=== PATIENT | male | born 1950 | race Caucasian/White ===

== ENCOUNTER 2017-08-25 20:48 | Inpatient (IN) | payer OTHER ==
[~2017-08-25] VITALS: Ht 190.5 cm; Wt 123.4 kg
--- NOTE | 2017-08-25 21:18 | ED GI/GU/ABDOMINAL COMPLAINT ---
History of Present Illness General Chief Complaint: Abdominal Pain/Flank Pain Stated Complaint: RECTAL BLEEDING, DX DIVERTICULITIS AT ANOTHER ER Source: patient Exam Limitations: no limitations Vital Signs & Intake/Output Vital Signs & Intake/Output Vital Signs Date Time Temp Pulse Resp B/P B/P Pulse O2 O2 Flow FiO2 Mean Ox Delivery Rate 08/25 2316 167/88 08/251 96.9 91 20 135/89 95 Room Air Allergies Uncoded Allergies: Allergy Other N Med Allergies N Reconcile Medications Doxazosin Mesylate 2 MG TABLET 1 TAB PO DAILY HTN (Reported) Hydrochlorothiazide 25 MG TABLET 1 TAB PO DAILY HTN (Reported) Triage Note: PT HERE WITH C/O RECTAL BLEEDING X 2 DAYS. PT REPORTS IT IS BRIGHT RED BLOOD. PT SEEN RECENTLY AT [facility] AND WAS DIAGNOSED WITH DIVERTICULOSIS. PT STATES HE IS FEELING DIZZY. Triage Nurses Notes Reviewed? yes Onset: Gradual Duration: day(s): Timing: recent history Quality/Severity: cramping Location: generalized abdomen Radiation: no radiation Prior Abdominal Problems: none Modifying Factors: Improves With: rest. Associated Symptoms: rectal bleeding HPI: 67 yo gentleman on aspirin, presents w/ rectal bleeding. He shares that he began bleeding intermittently earlier today, [facility] had a hct [facility] w/ stable vitals. "They said I should be admitted, but I wanted to go home.... When I got home, I had another blood bowel movement... it seemed mixed with stool." He notes no dizziness, chills, fever. At [facility], he had a ct scan, "they said it showed diverticulosis but no infection." He is otherwise well. Past History Travel History Traveled to [place] past 21 day No Medical History Any Pertinent Medical History? see below for history Cardiovascular: hypertension Respiratory: asthma Gastrointestinal: diverticulitis Surgical History Surgical History: none Psychosocial History What is your primary language Kiswahili Tobacco Use: Never used ETOH Use: occasional use Illicit Drug Use: denies illicit drug use Family History Hx Contributory? No Review of Systems Review of Systems Constitutional: Reports: no symptoms. EENTM: Reports: no symptoms. Respiratory: Reports: no symptoms. Cardiovascular: Reports: no symptoms. GI: Reports: no symptoms. Genitourinary: Reports: no symptoms. Musculoskeletal: Reports: no symptoms. Skin: Reports: no symptoms. Neurological/Psychological: Reports: no symptoms. Hematologic/Endocrine: Reports: no symptoms. Immunologic/Allergic: Reports: no symptoms. All Other Systems: Reviewed and Negative Physical Exam Physical Exam General Appearance: well developed/nourished, no apparent distress Head: atraumatic, normal appearance Eyes: Bilateral: normal appearance. Ears, Nose, Throat, Mouth: hearing grossly normal, moist mucous membrane Neck: normal inspection, supple, full range of motion, normal alignment Respiratory: normal breath sounds, chest non-tender, no respiratory distress, quiet respiration Cardiovascular: regular rate/rhythm Gastrointestinal: soft, non-tender Rectal: mucusy blood streaks, no clots. no stool Back: normal inspection, normal range of motion Extremities: normal range of motion Neurologic/Psych: no motor/sensory deficits, awake, alert, oriented x 3 Skin: intact, normal color, warm/dry Core Measures ACS in differential dx? No Sepsis Present: No Sepsis Focused Exam Completed? No Progress Differential Diagnosis: upper vs lower gi bleed Plan of Care: Orders Procedure Date/time Status Nothing by Mouth 08/26 B Active CBC WITHOUT DIFFERENTIAL 08/26 06 Active Pathway - chart 08/25 2300 Active Patient Data 08/25 230 Active Patient Data 08/25 2240 Active Saline Lock 08/25 222 Active Misc Message 08/25 222 Active ED Holding Orders 08/25 2220 Active Admit to inpatient 08/25 222 Active Vital Signs 08/25 2220 Active Code Status 08/25 222 Active Intake & Output 08/25 2137 Active TROPONIN LEVEL 08/25 210 Complete LIPASE 08/25 2100 Complete HEPATIC FUNCTION PANEL 08/25 2100 Complete CBC WITHOUT DIFFERENTIAL 08/25 2100 Complete BASIC METABOLIC PANEL 08/25 2100 Complete AMYLASE 08/25 2100 Complete EKG 08/25 2100 Active TYPE & SCREEN (NOT X-MATCH) 08/25 2100 Complete Current Medications Sig/Abdullahi Start time Last Medication Dose Stop Time Status Admin Sodium Chloride 1,000 ML BOLUS ONE 08/25 2229 UNVr 08/25 (Normal Saline 0.9%) 08/25 232 2238 Laboratory Tests 08/25/172125: Anion Gap 10, Estimated GFR > 60, BUN/Creatinine Ratio 15.0, Glucose 128 H, Calcium 9.1, Total Bilirubin 0.5, Direct Bilirubin 0.4, AST 22, ALT 32, Alkaline Phosphatase 95, Troponin I < 0.01, Total Protein 6.6, Albumin 3.6, Amylase 37, Lipase 44, CBC w Diff NO MAN DIFF REQ, RBC 4.15 L, MCV 93.7, MCH 31.1 H, MCHC 33.3, RDW 13.7, MPV 7.3 L, Gran % 58.6, Lymphocytes % 28.0, Monocytes % 10.8 H , Eosinophils % 2.4, Basophils % 0.2, Absolute Granulocytes 4.0, Absolute Lymphocytes 1.9, Absolute Monocytes 0.7 H, Absolute Eosinophils 0.2, Absolute Basophils 0 08/25/17 0200: CBC w Diff Cancelled, WBC Cancelled, RBC Cancelled, Hgb Cancelled, Hct Cancelled , MCV Cancelled, MCH Cancelled, MCHC Cancelled, RDW Cancelled, Plt Count Cancelled, MPV Cancelled Initial ED EKG: nsr, no acute changes Departure Departure Disposition: STILL A PATIENT Condition: Stable Clinical Impression Primary Impression: GI bleed Referrals: Unknown Departure Forms: Customer Survey General Discharge Information Comments 08/25/17, 22:43... discussed with GI who will evaluate patient in the AM. Admission Note Spoke With: Anirudh Bansal MD Documentation of Exam: Documentation of any treatments & extenuating circumstances including Concerns Regarding Discharge (functional status, medication knowledge or non-compliance, living conditions, etc.) that warrant an admission rather than observation: pt with lower gi bleed, diverticular in origin based on history and his report of ct scan earlier today (unable to secure official results).... hct at outside hospital 42.... in ed 38.9.... pt stable for gen med. iv fluids given.... discussed with GI who will evaluate in the AM.
[2017-08-25 21:47] LABS: ABSOLUTE BASOPHIL COUNT 0 /CUMM (0.0-0.2); ABSOLUTE EOSINOPHIL COUNT 0.2 /CUMM (0.0-0.7); ABSOLUTE LYMPH COUNT 1.9 /CUMM (1.2-3.4); ABSOLUTE MONOCYTE COUNT 0.7 /CUMM (0.10-0.60); BASOPHIL % 0.2 % (0.0-2.0); EOSINOPHIL % 2.4 % (0-5); GRANULOCYTE % 58.6 % (42.2-75.2); HEMATOCRIT 38.9 % (42-52); MEAN CORPUSCULAR HGB 31.1 PG (27.0-31.0); MEAN CORPUSCULAR HGB CONC 33.3 G/DL (33.0-37.0); MEAN CORPUSCULAR VOLUME 93.7 FL (80.0-94.0); MEAN PLATELET VOLUME 7.3 FL (7.4-10.4); PLATELET COUNT 243 /CUMM (130-400); RBC DISTRIBUTION WIDTH 13.7 % (11.5-14.5); RED BLOOD CELL CT 4.15 /CUMM (4.70-6.10); WHITE BLOOD CELL COUNT 6.8 /CUMM (4.8-10.8)
--- NOTE | 2017-08-25 22:43 | History & Physical ---
Tavares Pavon MD 08/25/17 6293: General Information and HPI MD Statement: I have seen and personally examined FIONA DICKEY and documented this H&P. The patient is a 67 year old M who presented with a patient stated chief complaint of [hematochezia]. Source of Information: patient, family Exam Limitations: no limitations History of Present Illness: Patient is a 67-year-old male with a PMH significant for diverticulitis 15 years ago, HTN, asthma, who presented to the [facility] ED complaining of painless bright red blood per rectum. Patient reports waking up this morning in his usual state of health and traveling to visit his family for [facility]. He then began having painless bright red blood per rectum which she describes as bright red coating the entire toilet bowl with no stool. He then began having associated mild abdominal pain in the left lower quadrant. He was passing blood per rectum approximately once per hour and decided to go to the local ED, [facility]. There he had lab work done and a CT scan showing diverticulosis. He was told that he could be admitted or return home and follow up with his doctor in the morning. He decided to go home and continued having prior blood per rectum associated dizziness and decided to come to [facility]. He denies any chest pain, palpitations, loss of consciousness. Allergies/Medications Allergies: Uncoded Allergies: Allergy Other N Med Allergies N Home Med list Doxazosin Mesylate 2 MG TABLET 1 TAB PO DAILY HTN (Reported) Hydrochlorothiazide 25 MG TABLET 1 TAB PO DAILY HTN (Reported) Past History Travel History Traveled to [facility] past 21 day No Medical History Cardiovascular: hypertension Respiratory: asthma Gastrointestinal: diverticulitis, umbilical hernia Surgical History Surgical History: hernia repair-umbilical Past Family/Social History Family History Relations & Conditions if any FATHER FH: [place] in first degree male relative Psychosocial History Where do you live? Home Who Do You Live With? spouse Services at Home: None Primary Language: Yakut Smoking Status: Never Smoked ETOH Use: occasional use Illicit Drug Use: denies illicit drug use Functional Ability ADLs Independent: dressing, eating, toileting, bathing. Ambulation: independent IADLs Independent: shopping, housework, finances, food prep, telephone, transportation , medication admin. Review of Systems Review of Systems Constitutional: Denies: chills, fever, weakness. EENTM: Reports: no symptoms. Cardiovascular: Denies: chest pain, orthopena, palpitations, syncope. Respiratory: Denies: cough, orthopnea, short of breath. GI: Reports: bloating, bloody stool. Denies: melena, nausea, vomiting. Genitourinary: Reports: no symptoms. Musculoskeletal: Reports: no symptoms. Skin: Reports: no symptoms. Exam & Diagnostic Data Last 24 Hrs of Vital Signs/I&O Vital Signs Date Time Temp Pulse Resp B/P B/P Pulse O2 O2 Flow FiO2 Mean Ox Delivery Rate 08/26 0351 99 Nasal 2.0L Cannula 08/26 0243 96 Room Air 08/26 0108 97.8 75 22 124/80 95 Room Air 08/26 0039 98.4 88 20 134/74 95 Room Air 08/25 2316 167/88 08/25 2111 96.9 91 20 135/89 95 Room Air Intake & Output 08/26 0800 08/26 0000 08/25 1600 Intake Total 1000 Output Total Balance 1000 Intake, IV 1000 Number 4 Bowel Movements Patient 272 lb 272 lb Weight Weight Reported by Patient Reported by Patient Measurement Method Physical Exam General Appearance Alert, Oriented X3, Cooperative, No Acute Distress Skin Temp/Moisture Exam: Warm/Dry Cardiovascular Regular Rate, Normal S1, Normal S2 Lungs Clear to Auscultation, Normal Air Movement Abdomen obese, mild distension, tender to palpation of the LLQ and hypogastric area, no rebound tenderness or gaurding, hyperactive bowel sounds Neurological Normal Speech, Normal Tone, Sensation Intact, Cranial Nerves 3-12 NL Extremities No Clubbing, No Cyanosis, No Edema Last 24 Hrs of Labs/Miguelito: Laboratory Tests 08/26/17 0150: CBC w Diff NO MAN DIFF REQ, RBC 3.33 L, MCV 93.3, MCH 31.3 H, MCHC 33.5, RDW 13.7, MPV 7.4, Gran % 63.2, Lymphocytes % 25.7, Monocytes % 9.3, Eosinophils % 1.7, Basophils % 0.1, Absolute Granulocytes 3.8, Absolute Lymphocytes 1.6, Absolute Monocytes 0.6, Absolute Eosinophils 0.1, Absolute Basophils 0 08/25/176: Anion Gap 10, Estimated GFR > 60, BUN/Creatinine Ratio 15.0, Glucose 128 H, Calcium 9.1, Total Bilirubin 0.5, Direct Bilirubin 0.4, AST 22, ALT 32, Alkaline Phosphatase 95, Troponin I < 0.01, Total Protein 6.6, Albumin 3.6, Amylase 37, Lipase 44, CBC w Diff NO MAN DIFF REQ, RBC 4.15 L, MCV 93.7, MCH 31.1 H, MCHC 33.3, RDW 13.7, MPV 7.3 L, Gran % 58.6, Lymphocytes % 28.0, Monocytes % 10.8 H , Eosinophils % 2.4, Basophils % 0.2, Absolute Granulocytes 4.0, Absolute Lymphocytes 1.9, Absolute Monocytes 0.7 H, Absolute Eosinophils 0.2, Absolute Basophils 0 Microbiology 08/27 315 UPPER RESP: Surveillance Culture - ORD 08/27 315 GI: Surveillance Culture - ORD Diagnostic Data EKG Results NSR HR 66, nonspecific T wave inversion in III Assessment/Plan Assessment: Patient is a 67-year-old male with a PMH significant for diverticulitis 15 years ago, HTN, asthma, who presented to the [facility] ED complaining of painless bright red blood per rectum. Patient was orthostatic negative in the ED and was able to ambulate to the restroom and passed dark red blood with clots approximately 4 times before being admitted to the general medicine floor. While on the floor at approximately 0230 a rapid response was called when he attempts to ambulate to the restroom, felt dizzy, and fell. Vitals at that time were pulse 86, BP 70/40 pulse ox 95% on room air. He was given 1L NS bolus. A call was placed to the on- call gastrointerologist, Dr. Cassidy, who recommended transfer to the ICU and blood transfusion. At [facility] patient's H/H 14.5/42.2 at 1859 on the day of admission on presentation at Center dropped to 12.9/38.9 at 2126, with further dropped to 10.4/31.1 at 0150. Problem list #Hematochezia with acute blood loss anemia, possible diverticular bleed over the wire is dark in color which could represent a large volume GI bleed, patient is on aspirin #Chronic medical problems including hypertension Plan -Initially admitted to general medicine floor, transferred to the ICU, patient's family was informed - maintained 2 large-bore peripheral IVs at all times - Transfuse 2 units PRBCs, follow-up H&H posttransfusion -Official GI consult placed -Maintenance IV fluid rehydration with normal saline -Keep nothing by mouth -Hold HCTZ, doxazosin, and aspirin - In AM bring CD of CT from [facility] to radiology to upload into [facility] Diet: Nothing by mouth DVT prophylaxis: Alps, no pharmacological prophylaxis CODE STATUS: Full code As Ranked By This Provider Problem List: 1. GI bleed Core Measures/Misc (02/10) Acute Coronary Syndrome ACS Diagnosis: No Congestive Heart Failure Congestive Heart Failure Diagnosis No Cerebrovascular Accident CVA/TIA Diagnosis: No VTE (View Protocol) VTE Risk Factors Age>40 No Mechanical VTE Prophylaxis d/t N/A MechProphylax Ordered No VTE Pharm Prophylaxis d/t Bleeding (Active) Sepsis (View protocol) Sepsis Present: No Misti Spencer 08/26/17 0212: Resident Review Statement Resident Statement: examined this patient, discussed with marketing intern, agreed with marketing intern, discussed with family, reviewed images Other Findings: 67 year old gentleman from home,with pmh significant for HTN on aspirin, normal cardiac cath 2 years ago, diverticulosis with h/o diverticulitis 15 years ago, brought in by family for BRBPR. Patient was visiting family when he starting having painless BRBPR and he was taken [facility]. Lab work showed hb of 14, Hct 42.2, coag panel PT 10.1, INR 1.0, PTT 27.1, CT abdomen and pelvis was also done. Images obtained from [facility] will be observed radiology in the a.m. He endorsed some dizziness on interview Denied fever, chills, shortness of breath, palpitation, abdominal pain, constipation, urinary symptoms. Colonoscopy was done 4 years ago at [facility] by Dr. Chacon which was within normal limits. Vitals on admission temperature 96.9, heart rate 99, respiratory rate 20, blood pressure 135/89, 95% on room air, orthostats negative On examination patient was comfortable alert and oriented. Abdomen exam significant for hyperactive bowel sounds heard in all areas and mild diffuse tenderness to palpation. No guarding rigidity or rebound tenderness noted. Rectal exam was done by ED showed no hemorrhoids. Rest of examination was unremarkable Labs significant for WBC 6.8, hemoglobin 12.9, hematocrit 38.9, platelet 2 43, sodium 144, potassium 2.7, chloride 103, bicarbonate 31, B1 15, creatinine 1.0, glucose 128, normal LFTs, troponin 0.01, normal amylase and lipase EKG shows normal sinus rhythm nonspecific T-wave changes in lead 3 Assessment: Symptomatic Acute blood loss anemia in the setting lower GI bleed. Possible differentials: diverticular bleed versus colonic angiodysplasia versus Dieulafoy lesion. Problem list: Acute blood loss anemia Bright red bleed per rectum History of diverticulosis Plan: Patient was initially admitted to the general med floor as he was hemodynamically stable. Around 2:30 AM rapid response was called as patient was walking to the bathroom and felt very dizzy and fell to the floor. Denied head strike, was able to answer questions appropriately denied any weakness of extremities tingling or numbness or any difficulty speaking. Since admission he had 4 significant episodes of rectal bleeding and continued to feel dizzy. Pressure at this time was found to be 70/40. Was given 1 L bolus. Stat call placed to GI. Spoke to on-call flight crew ordnanceman Dr. Cassidy who recommended blood transfusion 2 units. Spoke to Numerical Control Operator and patient was transferred to the ICU for closer monitoring of his vitals. Sign out given to ICU team Consent for blood transfusion was obtained and was also informed of his transferred to ICU. CBC/ICU bundle 10 AM. Holding his home antihypertensive of doxazosin and hydrochlorothiazide Hold aspirin Will keep patient nothing by mouth NPO dvt ppx: ALPs full code Anirudh Bansal MD 08/26/17 0504: Attending Review Statement Attending Statement Attending MD Statement: examined this patient, discuss w/resident/PA/JEWELRY SALES COORDINATOR, agreed w/resident/PA/JEWELRY SALES COORDINATOR, discussed with family, discussed with nursing Attending Assessment/Plan: Mr. Dickey is a 67-year-old healthy gentleman with a history of diverticulitis several years ago, hypertension and asthma who presents to the complaints of painless bright red blood per rectum. And went to outside hospital with similar complaints, and was advised admission however wish to go back home only for the symptoms returned and so [facility]. On examination orthostatic vital signs negative blood pressure 135/89 heart rate of 91 temperature 96.9 saturating 95% on room air General Appearance Alert, Oriented 3 Cardiovascular Regular Rate, Normal S1, Normal S2 Lungs Clear to Auscultation bilaterally Abdomen obese, mild distension, diffusely tender all over the abdomen, no guarding or rigidity. Bowel sounds heard Neurological no focal neurological deficit Extremities No Clubbing, No Cyanosis, No Edema Per Rectal (Done by ER) - Mucus blood streaks, no clots Assessment and Plan Painless Lower gastrointestinal bleeding likely diverticulosis - patient continues to have bright red bleeding per rectum every now and then. Patient also symptomatic when raising up from bed and walking to the bathroom in terms of dizziness lightheadedness. However vital signs have been stable hemoglobin dropped 3 points. Keep NPO. Discussed with gastroenterology recommend blood transfusion. Will maintain 2 large IV bore needles, type and cross match sent. Patient was initially admitted to the general medicine floor, however due to concerns of persistent bleeding patient transferred to intensive care unit for closer monitoring. Will continue with intravenous fluid resuscitation. Gastroenterology agreed to evaluate the patient in the morning. Holding home medications including hydrochlorothiazide doxazosin and aspirin. CAT scan of the abdomen images obtained from [facility] will be observed radiology in the a.m.
[2017-08-25] MEDS ORDERED: DOXAZOSIN MESYLA2 M1 PO (23:03)
[2017-08-25] MEDS ORDERED: HYDROCHLOROTHIA25 M1 PO (23:03)
[2017-08-26 01:08] VITALS: BP 124/80
[2017-08-26 02:10] LABS: ABSOLUTE BASOPHIL COUNT 0 /CUMM (0.0-0.2); ABSOLUTE EOSINOPHIL COUNT 0.1 /CUMM (0.0-0.7); ABSOLUTE LYMPH COUNT 1.6 /CUMM (1.2-3.4); ABSOLUTE MONOCYTE COUNT 0.6 /CUMM (0.10-0.60); RBC DISTRIBUTION WIDTH 13.7 % (11.5-14.5)
[2017-08-26 02:21] LABS: ABSOLUTE GRANULOCYTE CT 3.8 /CUMM (1.4-6.5); BASOPHIL % 0.1 % (0.0-2.0); EOSINOPHIL % 1.7 % (0-5); GRANULOCYTE % 63.2 % (42.2-75.2); MEAN CORPUSCULAR HGB 31.3 PG (27.0-31.0); MEAN CORPUSCULAR HGB CONC 33.5 G/DL (33.0-37.0); MEAN CORPUSCULAR VOLUME 93.3 FL (80.0-94.0); MEAN PLATELET VOLUME 7.4 FL (7.4-10.4); PLATELET COUNT 195 /CUMM (130-400); RED BLOOD CELL CT 3.33 /CUMM (4.70-6.10); WHITE BLOOD CELL COUNT 6.1 /CUMM (4.8-10.8)
[2017-08-26 02:22] LABS: HEMATOCRIT 31.1 % (42-52)
--- NOTE | 2017-08-26 07:50 | Cons- CRCU ---
General Information and HPI Allergies/Medications Allergies: Uncoded Allergies: Allergy Other N Med Allergies N Home Med List: Doxazosin Mesylate 2 MG TABLET 1 TAB PO DAILY HTN (Reported) Hydrochlorothiazide 25 MG TABLET 1 TAB PO DAILY HTN (Reported) Past History Travel History Traveled to [place] past 21 day No Medical History Blood Transfusion Hx: No Cardiovascular: hypertension Respiratory: asthma Gastrointestinal: diverticulitis, umbilical hernia Surgical History Surgical History: hernia repair-umbilical Family History Relations & Conditions If Any: FATHER FH: [place] in first degree male relative Psychosocial History Where Do You Live? Home Who Do You Live With? spouse Services at Home: None Primary Language: Persian Smoking Status: Never Smoked ETOH Use: occasional use Illicit Drug Use: denies illicit drug use Functional Ability ADLs Independent: dressing, eating, toileting, bathing. Ambulation: independent IADLs Independent: shopping, housework, finances, food prep, telephone, transportation , medication admin. Assessment/Plan CRCU Consult Acknowledgment - Thank you for your consult request.
[2017-08-26 08:00] VITALS: BP 130/70
--- NOTE | 2017-08-26 08:05 | Cons- CRCU ---
Herbert Abreu MD 08/26/17 0804: General Information and HPI Consulting Request Date of Consult: 08/26/17 Requested By: Medical Team History of Present Illness: 67 year old man with past medial history of diverticulosis, hypertension, and asthma seen for evaluation of painless bright red blood per rectum. Patient reportedly awoke the morning of admission in his normal state of health and traveled [place] [facility] [place]. When he arrived her developed bright red blood per rectum with mild abdominal pain for which he reported to the [facility] ED whom performed an abdominal CT that demonstrated diverticulosis and discharged to home with instruction to follow up with his physician. He was discharged to home, but reported to the [facility] ED after his rectal bleeding returned. Presently patient reports that he feels well and has no new issues. He does admit to passing recent bowel movements that look like small dark blood clots, but no obvious bright red blood. Specifically he denies any headache, fever, chills, lightheadedness, dizziness, blurred/double vision, chest pain, palpitations, heartburn, shortness of breath, nausea, vomiting. Allergies/Medications Home Med List: Doxazosin Mesylate 2 MG TABLET 1 TAB PO DAILY HTN (Reported) Hydrochlorothiazide 25 MG TABLET 1 TAB PO DAILY HTN (Reported) Review of Systems Review of Systems Constitutional: Reports: see HPI. Past History Travel History Traveled to [facility] past 21 day No Medical History Blood Transfusion Hx: No Cardiovascular: hypertension Respiratory: asthma Gastrointestinal: diverticulitis, umbilical hernia Surgical History Surgical History: hernia repair-umbilical Family History Relations & Conditions If Any: FATHER FH: [place] in first degree male relative Psychosocial History Where Do You Live? Home Who Do You Live With? spouse Services at Home: None Primary Language: Slovak Smoking Status: Never Smoked ETOH Use: occasional use Illicit Drug Use: denies illicit drug use Functional Ability ADLs Independent: dressing, eating, toileting, bathing. Ambulation: independent IADLs Independent: shopping, housework, finances, food prep, telephone, transportation , medication admin. Exam & Diagnostic Data Last 24 Hrs of Vital Signs/I&O Vital Signs Date Time Temp Pulse Resp B/P B/P Pulse O2 O2 Flow FiO2 Mean Ox Delivery Rate 08/26 0800 96 Nasal 2.0L Cannula 08/26 0800 97.0 69 16 130/70 99 Nasal 2.0L Cannula 08/26 0400 99 Nasal 2.0L Cannula 08/26 0351 99 Nasal 2.0L Cannula 08/26 0243 96 Room Air 08/26 0108 97.8 75 22 124/80 95 Room Air 08/26 0039 98.4 88 20 134/74 95 Room Air 08/25 2316 167/88 08/25 2111 96.9 91 20 135/89 95 Room Air Intake & Output 08/26 1600 08/26 0800 04 0000 Intake Total 1448 1000 Output Total 250 Balance 1198 1000 Intake, Blood 148 Product Intake, IV 1300 1000 Number 4 Bowel Movements Output, Urine 250 Patient 123.377 kg 123.377 kg Weight Weight Reported by Patient Reported by Patient Measurement Method Physical Exam General Appearance: well developed/nourished, no apparent distress, alert, awake , comfortable Head: atraumatic, normal appearance Eyes: Bilateral: normal appearance, PERRL, EOMI. Ears, Nose, Throat: normal pharynx Neck: normal inspection, supple, full range of motion Respiratory: normal breath sounds, chest non-tender, no respiratory distress, quiet respiration, lungs clear Cardiovascular: regular rate/rhythm Peripheral Pulses: 2+ radial (R), 2+ radial (L) Gastrointestinal: normal bowel sounds, soft, non-tender Back: normal inspection, normal range of motion Extremities: normal inspection, normal capillary refill, normal range of motion, no edema Last 48 Hrs of Labs/Miguelito: Laboratory Tests 08/26/17 1015: Anion Gap 11, Estimated GFR > 60, Glucose 120 H, Calcium 8.6, Phosphorus 2.7, Magnesium 1.9, Total Bilirubin 1.2, AST 20, ALT 30, Albumin 3.5, CBC w Diff NO MAN DIFF REQ, RBC 3.80 L, MCV 93.0, MCH 31.2 H, MCHC 33.5, RDW 14.8 H, MPV 7.5, Gran % 63.4, Lymphocytes % 25.2, Monocytes % 9.0, Eosinophils % 2.1, Basophils % 0.3, Absolute Granulocytes 4.3, Absolute Lymphocytes 1.7, Absolute Monocytes 0.6, Absolute Eosinophils 0.1, Absolute Basophils 0 08/26/17 0600: Sodium Cancelled, Potassium Cancelled, Chloride Cancelled, Carbon Dioxide Cancelled, Anion Gap Cancelled, BUN Cancelled, Creatinine Cancelled, BUN/ Creatinine Ratio Cancelled, CBC w Diff Cancelled, WBC Cancelled, RBC Cancelled, Hgb Cancelled, Hct Cancelled, MCV Cancelled, MCH Cancelled, MCHC Cancelled, RDW Cancelled, Plt Count Cancelled, MPV Cancelled 08/26/17 0150: CBC w Diff NO MAN DIFF REQ, RBC 3.33 L, MCV 93.3, MCH 31.3 H, MCHC 33.5, RDW 13.7, MPV 7.4, Gran % 63.2, Lymphocytes % 25.7, Monocytes % 9.3, Eosinophils % 1.7, Basophils % 0.1, Absolute Granulocytes 3.8, Absolute Lymphocytes 1.6, Absolute Monocytes 0.6, Absolute Eosinophils 0.1, Absolute Basophils 0 08/25/17 2126: Anion Gap 10, Estimated GFR > 60, BUN/Creatinine Ratio 15.0, Glucose 128 H, Calcium 9.1, Total Bilirubin 0.5, Direct Bilirubin 0.4, AST 22, ALT 32, Alkaline Phosphatase 95, Troponin I < 0.01, Total Protein 6.6, Albumin 3.6, Amylase 37, Lipase 44, CBC w Diff NO MAN DIFF REQ, RBC 4.15 L, MCV 93.7, MCH 31.1 H, MCHC 33.3, RDW 13.7, MPV 7.3 L, Gran % 58.6, Lymphocytes % 28.0, Monocytes % 10.8 H , Eosinophils % 2.4, Basophils % 0.2, Absolute Granulocytes 4.0, Absolute Lymphocytes 1.9, Absolute Monocytes 0.7 H, Absolute Eosinophils 0.2, Absolute Basophils 0 08/25/17 0200: CBC w Diff Cancelled, WBC Cancelled, RBC Cancelled, Hgb Cancelled, Hct Cancelled , MCV Cancelled, MCH Cancelled, MCHC Cancelled, RDW Cancelled, Plt Count Cancelled, MPV Cancelled Assessment/Plan CRCU Impression/Plan: 67 year old man with significant history of diverticulosis seen for acute onset bright red blood per rectum for which patient was admitted to the ICU. Patients remains hemodynamically stable with mild anemia on labs. Patient was seen and evaluated by patient registration clerk Dr. Sorto whom will perform and endoscopy on the patient this afternoon after receiving his bowel prep. Problem List -Lower GI Bleed, probable diverticular bleed -Acute blood loss anemia -Diverticulosis -Hypertension -Asthma Plan -Continue ICU for endoscopy -Endoscopy this afternoon -Monitor for hemodynamic instability -Hold aspirin -NS @ 100 mL/hr -Golytely 1 gallon now -Type & Cross -Transfuse PRBC PRN -CBC Q8H -Pain control PRN -NPO -DVT PPx with ALPS -FULL CODE Consult Acknowledgment - Thank you for your consult request. Jerry Deutsch MD 08/26/17 1050: General Information and HPI Allergies/Medications Allergies: Coded Allergies: No Known Allergies (08/26/17) Assessment/Plan CRCU Other Findings/Comments: Jerry Rowe M.D. have examined this patient, reviewed available EMR data, personally reviewed images, discussed with resident/PA/BULK PLANT AGENT, discussed management plan with housestaff and nursing staff, discussed managment plan all of healthcare providers, discussed management plan with patient and/or family, agreed with resident/PA/BULK PLANT AGENT. The past history and parts of the chart have been autopopulated. Impression 67-year-old man * Acute blood loss anemia likely secondary to lower GI bleed secondary to diverticular bleed Plan GI consultation Nothing by mouth IV fluids Colonoscopy plan If any need we'll get a surgical consultation Monitor CBC Monitor hemodynamics DVT prophylaxis with ALPS TTS 40 min Consult Acknowledgment - Thank you for your consult request.
[2017-08-26 11:06] LABS: ABSOLUTE BASOPHIL COUNT 0 /CUMM (0.0-0.2); ABSOLUTE EOSINOPHIL COUNT 0.1 /CUMM (0.0-0.7); ABSOLUTE GRANULOCYTE CT 4.3 /CUMM (1.4-6.5); ABSOLUTE LYMPH COUNT 1.7 /CUMM (1.2-3.4); ABSOLUTE MONOCYTE COUNT 0.6 /CUMM (0.10-0.60); BASOPHIL % 0.3 % (0.0-2.0); EOSINOPHIL % 2.1 % (0-5); GRANULOCYTE % 63.4 % (42.2-75.2); HEMATOCRIT 35.3 % (42-52); MEAN CORPUSCULAR HGB 31.2 PG (27.0-31.0); MEAN CORPUSCULAR HGB CONC 33.5 G/DL (33.0-37.0); MEAN PLATELET VOLUME 7.5 FL (7.4-10.4); PLATELET COUNT 230 /CUMM (130-400); RBC DISTRIBUTION WIDTH 14.8 % (11.5-14.5); WHITE BLOOD CELL COUNT 6.8 /CUMM (4.8-10.8)
--- NOTE | 2017-08-26 12:17 | Cons- Gastroenterology ---
General Information and HPI Consulting Request Date of Consult: 08/26/17 Requested By: Anirudh Bansal MD Reason for Consult: BRBPR, anemia, history of diverticulosis. Source of Information: patient, old records Exam Limitations: no limitations History of Present Illness: Mr. Martinez is a 67 year old male with a PMH significant for HTN and asthma who presented to yesterday with complaints of hematochezia that began a few days before presentaton. He notes that the bleeding came on without warning a few days ago and prior to that he had been having normal bowel movmements. He has had some lower abdominal cramping with the bowel movements, but no overt pain. He has also been without any pain with eating, heartburn, dysphaiga or vomiting. He has never had bleeding like this in past. He went to a hospital in [facility] where he had unremarkalbe blood work and he was sent home apparently with instructions to return if the bleeding persisted which it did so he came back to the ER last night. He notes that yesterday he had many bowel movements with the passage of blood and clots without much in the way of stool. He denies any associated lightheadedness, sob or chest pain. Since arrival to the ER he has remained hemodynamically stable, but he has continued to have blood bowel movements with a decreasing hemoglobin. He has been given one unit of PRBCs since admission. Allergies/Medications Allergies: Coded Allergies: No Known Allergies (08/26/17) Home Med List: Doxazosin Mesylate 2 MG TABLET 1 TAB PO DAILY HTN (Reported) Hydrochlorothiazide 25 MG TABLET 1 TAB PO DAILY HTN (Reported) Current Medications: Current Medications Sig/Abdullahi Start time Last Medication Dose Route Stop Time Status Admin Sodium Chloride 1,000 ML BOLUS ONE 08/26 0245 DC 08/26 IV 08/26 0344 0243 Sodium Chloride 1,000 ML Q13H 08/26 0045 AC 08/26 IV 0111 Sodium Chloride 1,000 ML ONCE ONE 08/26 0030 CAN IV 08/26 0829 Sodium Chloride 1,000 ML BOLUS ONE 08/25 2230 DC 08/25 IV 08/25 2329 2238 Past History Travel History Traveled to [place] past 21 day No Medical History Blood Transfusion Hx: No Cardiovascular: hypertension Respiratory: asthma Gastrointestinal: diverticulitis, umbilical hernia Surgical History Surgical History: hernia repair-umbilical Family History Relations & Conditions If Any: FATHER FH: [place] in first degree male relative Psychosocial History Where Do You Live? Home Who Do You Live With? spouse Services at Home: None Primary Language: Vietnamese Smoking Status: Never Smoked ETOH Use: occasional use Illicit Drug Use: denies illicit drug use Functional Ability ADLs Independent: dressing, eating, toileting, bathing. Ambulation: independent IADLs Independent: shopping, housework, finances, food prep, telephone, transportation , medication admin. Review of Systems Review of Systems Constitutional: Denies: no symptoms. EENTM: Denies: no symptoms. Cardiovascular: Denies: no symptoms. Respiratory: Denies: no symptoms. GI: Reports: see HPI. Genitourinary: Denies: no symptoms. Musculoskeletal: Denies: no symptoms. Skin: Denies: no symptoms. Neurological/Psychological: Denies: no symptoms. Hematologic/Endocrine: Reports: bleeding. Immunologic/Allergic: Denies: no symptoms. All Other Systems: Reviewed and Negative Exam & Diagnostic Data Vital Signs and I&O Vital Signs Date Time Temp Pulse Resp B/P B/P Pulse O2 O2 Flow FiO2 Mean Ox Delivery Rate 08/26 08 96 Nasal 2.0L Cannula 08/26 0800 97.0 69 16 130/70 99 Nasal 2.0L Cannula 08/26 0400 99 Nasal 2.0L Cannula 08/26 0351 99 Nasal 2.0L Cannula 08/26 0243 96 Room Air 08/26 0108 97.8 75 22 124/80 95 Room Air 08/26 0039 98.4 88 20 134/74 95 Room Air 08/25 2316 167/88 08/25 2111 96.9 91 20 135/89 95 Room Air Intake & Output 08/26 1600 08/26 0400 08/25 1600 08/25 0400 08/24 1600 08/24 0400 Intake Total 1448 1000 Output Total 250 Balance 1198 1000 Intake, Blood 148 Product Intake, IV 1300 1000 Number 4 Bowel Movements Output, Urine 250 Patient 272 lb Weight Weight Reported by Patient Measurement Method Physical Exam General Appearance: well developed/nourished, no apparent distress, alert, awake , comfortable Head: atraumatic, normal appearance Eyes: Bilateral: normal appearance. Ears, Nose, Throat: normal pharynx, normal ENT inspection, hearing grossly normal Neck: normal inspection, supple, full range of motion Respiratory: normal breath sounds, chest non-tender, no respiratory distress, quiet respiration Cardiovascular: regular rate/rhythm Gastrointestinal: normal bowel sounds, soft, non-tender, no organomegaly Rectal: deferred Back: normal inspection, normal range of motion Extremities: normal inspection, normal capillary refill, normal range of motion, no edema Neurologic/Psych: no motor/sensory deficits, awake, alert, oriented x 3 Results Pertinent Lab Results: Laboratory Tests 08/26 08/26 1015 0600 Chemistry Sodium (137 - 145 mmol/L) 146 H Cancelled Potassium (3.5 - 5.1 mmol/L) 3.6 Cancelled Chloride (98 - 107 mmol/L) 105 Cancelled Carbon Dioxide (22 - 30 mmol/L) 30 Cancelled Anion Gap (5 - 16) 11 Cancelled BUN (9 - 20 mg/dL) 13 Cancelled Creatinine (0.7 - 1.2 mg/dL) 0.9 Cancelled Estimated GFR (>60 ml/min) > 60 BUN/Creatinine Ratio Cancelled Glucose (65 - 99 mg/dL) 120 H Calcium (8.4 - 10.2 mg/dL) 8.6 Phosphorus (2.5 - 4.5 mg/dL) 2.7 Magnesium (1.6 - 2.3 mg/dL) 1.9 Total Bilirubin (0.2 - 1.3 mg/dL) 1.2 AST (17 - 59 U/L) 20 ALT (21 - 72 U/L) 30 Albumin (3.5 - 5.0 g/dL) 3.5 Hematology CBC w Diff NO MAN DIFF REQ Cancelled WBC (4.8 - 10.8 /CUMM) 6.8 Cancelled RBC (4.70 - 6.10 /CUMM) 3.80 L Cancelled Hgb (14.0 - 18.0 G/DL) 11.8 L Cancelled Hct (42 - 52 %) 35.3 L Cancelled MCV (80.0 - 94.0 FL) 93.0 Cancelled MCH (27.0 - 31.0 PG) 31.2 H Cancelled MCHC (33.0 - 37.0 G/DL) 33.5 Cancelled RDW (11.5 - 14.5 %) 14.8 H Cancelled Plt Count (130 - 400 /CUMM) 230 Cancelled MPV (7.4 - 10.4 FL) 7.5 Cancelled Gran % (42.2 - 75.2 %) 63.4 Lymphocytes % (20.5 - 51.1 %) 25.2 Monocytes % (1.7 - 9.3 %) 9.0 Eosinophils % (0 - 5 %) 2.1 Basophils % (0.0 - 2.0 %) 0.3 Absolute Granulocytes (1.4 - 6.5 /CUMM) 4.3 Absolute Lymphocytes (1.2 - 3.4 /CUMM) 1.7 Absolute Monocytes (0.10 - 0.60 /CUMM) 0.6 Absolute Eosinophils (0.0 - 0.7 /CUMM) 0.1 Absolute Basophils (0.0 - 0.2 /CUMM) 0 08/26 08/25 0150 2126 Chemistry Sodium (137 - 145 mmol/L) 144 Potassium (3.5 - 5.1 mmol/L) 3.7 Chloride (98 - 107 mmol/L) 103 Carbon Dioxide (22 - 30 mmol/L) 31 H Anion Gap (5 - 16) 10 BUN (9 - 20 mg/dL) 15 Creatinine (0.7 - 1.2 mg/dL) 1.0 Estimated GFR (>60 ml/min) > 60 BUN/Creatinine Ratio (7 - 25 %) 15.0 Glucose (65 - 99 mg/dL) 128 H Calcium (8.4 - 10.2 mg/dL) 9.1 Total Bilirubin (0.2 - 1.3 mg/dL) 0.5 Direct Bilirubin (< 0.4 mg/dL) 0.4 AST (17 - 59 U/L) 22 ALT (21 - 72 U/L) 32 Alkaline Phosphatase (< 127 U/L) 95 Troponin I (<0.11 ng/ml) < 0.01 Total Protein (6.3 - 8.2 g/dL) 6.6 Albumin (3.5 - 5.0 g/dL) 3.6 Amylase (30 - 110 U/L) 37 Lipase (23 - 300 U/L) 44 Hematology CBC w Diff NO MAN DIFF REQ NO MAN DIFF REQ WBC (4.8 - 10.8 /CUMM) 6.1 6.8 RBC (4.70 - 6.10 /CUMM) 3.33 L 4.15 L Hgb (14.0 - 18.0 G/DL) 10.4 L 12.9 L Hct (42 - 52 %) 31.1 L 38.9 L MCV (80.0 - 94.0 FL) 93.3 93.7 MCH (27.0 - 31.0 PG) 31.3 H 31.1 H MCHC (33.0 - 37.0 G/DL) 33.5 33.3 RDW (11.5 - 14.5 %) 13.7 13.7 Plt Count (130 - 400 /CUMM) 195 243 MPV (7.4 - 10.4 FL) 7.4 7.3 L Gran % (42.2 - 75.2 %) 63.2 58.6 Lymphocytes % (20.5 - 51.1 %) 25.7 28.0 Monocytes % (1.7 - 9.3 %) 9.3 10.8 H Eosinophils % (0 - 5 %) 1.7 2.4 Basophils % (0.0 - 2.0 %) 0.1 0.2 Absolute Granulocytes (1.4 - 6.5 /CUMM) 3.8 4.0 Absolute Lymphocytes (1.2 - 3.4 /CUMM) 1.6 1.9 Absolute Monocytes (0.10 - 0.60 /CUMM) 0.6 0.7 H Absolute Eosinophils (0.0 - 0.7 /CUMM) 0.1 0.2 Absolute Basophils (0.0 - 0.2 /CUMM) 0 0 04/01 0200 Hematology CBC w Diff Cancelled WBC Cancelled RBC Cancelled Hgb Cancelled Hct Cancelled MCV Cancelled MCH Cancelled MCHC Cancelled RDW Cancelled Plt Count Cancelled MPV Cancelled Assessment/Plan Assessment/Recommendations: Assessment: Mr. Martinez is a 67 year old male with a history of htn who presents with profuse rectal bleeding over the past 2 days most likely secondary to a diverticular bleed considering the benign physical exam, his clinical course and relative lack of pain with the bleeding. He has had a moderate drop in his hgb from admission, but as his repeat hgb improved with transfusion I am hopeful that the bleeding has clinically stopped. As his last colonoscopy was over 5 years ago an occult malignancy or large polyp is also possible, but in general cancer doesn't present this way. Other potential etiologies of the bleeding are avms, a dieulfoys lesion or colitis (ischemic or inflammatory), but the later is less likely without any significant abdominal pain on history of on PE. A rapid transit upper Gi bleed is also in the differential, but considering how stable he is and that his BUN/Cr ratio is normal this is highly unlikely. Recommendations: 1. Prep with one gallon of coltyte PO now. 2. Continue ICU monitoring and follow hgb q8hr and transfuse as needed to keep hgb > 7 or as per cardiology recommendations. 3. Notify GI for signs of hemodynamically significant bleeding 4. Maintain 2 large bore IVs at all times 5. Will plan for a diagnostic/therapeutic colonoscopy later today. I will continue to follow this patient and make further recommendations based on his clinical course and results of the colonoscopy to be done later today. Problem List: 1. GI bleed Copies To: Michael REBOLLAR,Noe Serrano Consult Acknowledgment - Thank you for your consult request.
--- NOTE | 2017-08-26 13:36 | Proc Note Colonoscopy ---
Colonoscopy Procedure Medical History: unchanged (see meditech consult) Mental Status: alert/oriented Heart/Lung Eval Prior to Sedation: within normal limits Candidate for Sedation? Yes Date of Last Colonoscopy: Over 5 years ago. Procedure Date: 08/26/17 Procedure Type: colonoscopy w/biopsy Command Center Officer: Campbell Sorto MD ASA Classification: III Indications: Hematochezia. Decreased hemoglobin. Instrument (Colonoscope): single channel Meds Received: MAC Patient's Tolerance: good Complications: none Extent Reached: cecum Prep: good Procedure: The risks of a colonoscopy was explained to the patient including, but not limited to, the risks of perforation, bleeding and/or a missed lesion and then written informed consent was obtained. After getting written informed consent the patient was placed in the left lateral decubitus position with pulse oximetry, cardiac monitoring, and supplemental oxygen was given. IV sedation was given until the desired effect was achieved. A rectal exam was performed which was normal. A high definition variable stiffness Olympus colonoscope was then inserted into the anus and advanced to the cecum with little difficulty. Retroflexed views were obtained and photodocumentation was obtained. Close inspection of the colonic mucosa was performed on insertion and withdrawal of the colonoscope with a withdrawal time that was adequate in length to closely inspect all folds and jordan of the colon. Findings: There was a 3 mm sessile polyp in the transverse colon which was removed with multiple bites of cold biopsy forceps and was sent to pathology for further evaluation. There were numerous scattered diverticula appreciated in the sigmoid and descending colon and there were also a few diverticula appreciated in the transverse colon and at the hepatic flexure. None of the visualized diverticula had any stigmata of recent hemorrhage. There was a scant amount of red blood in the distal left colon which was able to be easily suctioned away and the blood did not reaccumulate after this was done. The terminal ileum was not able to be intubated, but there was bile seen coming from the ileocecal valve and there was no blood on the right side of the colon. Retroflexed views in the rectum revealed small internal hemorrhoids. Impression: 1. Findings consistent with a resolving left-sided diverticular bleed. 2. Diminutive transverse colon polyp status post removal via cold biopsy forceps. 3. Small internal hemorrhoids. 4. No active bleeding appreciated. Recommendations: 1. He can be downgraded from the ICU and transferred to the medical floor. 2. Advance diet as tolerated. 3. Follow CBCs to 12 hours and transfuse as needed to maintain hemoglobin greater than 7 or as per cardiology recommendations. 4. Would hold his aspirin for an additional 48-72 hours. 5. He should follow up the pathology results with me as an outpatient and if it shows adenomatous changes he should have a repeat colonoscopy in 3-5 years time. 6. GI should be notified for signs of recurrent, hemodynamically significant lower GI bleeding in which case will be recommended that an angiogram be pursued for potential definitive treatment. Followup Colonscopy Screen In: pending biopsy result(s) CC: Michael REBOLLAR,Noe Serrano
[2017-08-26 16:00] VITALS: BP 128/76
--- NOTE | 2017-08-26 17:38 | RADIOLOGY REPORT ---
EXAMINATION: LEFT KNEE 3 VIEWS CLINICAL INFORMATION: Left knee pain after fall. Swelling. COMPARISON: None. TECHNIQUE: AP, lateral, oblique views of the left knee were obtained. FINDINGS: There are no fractures or dislocations. There is a moderate-sized knee joint effusion. There is no significant soft tissue swelling. There is mild narrowing to the medial compartment. IMPRESSION: Moderate-sized knee joint effusion. No acute fractures. Mild medial compartment narrowing.
[2017-08-26 19:57] LABS: ABSOLUTE BASOPHIL COUNT 0 /CUMM (0.0-0.2); ABSOLUTE EOSINOPHIL COUNT 0.2 /CUMM (0.0-0.7); ABSOLUTE GRANULOCYTE CT 3.9 /CUMM (1.4-6.5); ABSOLUTE MONOCYTE COUNT 0.6 /CUMM (0.10-0.60); BASOPHIL % 0.3 % (0.0-2.0); EOSINOPHIL % 2.2 % (0-5); GRANULOCYTE % 58.3 % (42.2-75.2); HEMATOCRIT 30.6 % (42-52); MEAN CORPUSCULAR HGB 30.9 PG (27.0-31.0); MEAN CORPUSCULAR VOLUME 93.4 FL (80.0-94.0); MEAN PLATELET VOLUME 7.3 FL (7.4-10.4); PLATELET COUNT 187 /CUMM (130-400); RBC DISTRIBUTION WIDTH 14.4 % (11.5-14.5); RED BLOOD CELL CT 3.28 /CUMM (4.70-6.10); WHITE BLOOD CELL COUNT 6.7 /CUMM (4.8-10.8)
[2017-08-26 22:02] VITALS: BP 122/70
[2017-08-27 05:37] VITALS: BP 130/78
--- NOTE | 2017-08-27 06:53 | PN- Housestaff ---
Subjective Follow-up For: Diverticular bleed Complaints: no complaints Subjective: seen and examined at bedside. No overnight events. No complaints. Patient is eager to go home today. He denies bright red bleeding per rectum, nausea, vomiting, dizziness, chest pain, shortness of breath. Review of Systems Constitutional: Reports: no symptoms. Cardiovascular: Reports: no symptoms. Respiratory: Reports: no symptoms. Gastrointestinal: Reports: no symptoms. Genitourinary: Reports: no symptoms. Musculoskeletal: Reports: no symptoms. Objective Last 24 Hrs of Vital Signs/I&O Vital Signs Date Time Temp Pulse Resp B/P B/P Pulse O2 O2 Flow FiO2 Mean Ox Delivery Rate 08/27 0900 80 18 142/78 99 08/27 0537 98.4 80 20 130/78 93 Room Air 08/26 2202 98.5 80 18 122/70 93 Room Air 08/26 1600 99.0 70 20 128/76 96 Intake & Output 08/27 1600 08/27 0800 08/27 0000 Intake Total 240 20 Output Total 0 Balance 240 20 Intake, IV 0 20 Intake, Oral 240 0 Number 0 0 Bowel Movements Output, Urine 0 Physical Exam General Appearance: Alert, Oriented X3, Cooperative, No Acute Distress Cardiovascular: Regular Rate, Normal S1, Normal S2, No Murmurs Lungs: Clear to Auscultation Abdomen: Soft, No Tenderness, No Hepatospenomegaly Neurological: Strength at 5/5 X4 Ext, Normal Tone, Sensation Intact Extremities: No Cyanosis, No Edema, Normal Pulses Current Medications: Current Medications Sig/Abdullahi Start time Last Medication Dose Route Stop Time Status Admin Chlorhexidine 1 GM .STK-MED ONE 08/26 1405 DC Gluconate TOP 08/26 1406 Sodium Chloride 1,000 ML Q13H 08/26 0045 DC 08/26 IV 0111 Last 24 Hrs of Lab/Miguelito Results Last 24 Hrs of Labs/Mics: Laboratory Tests 08/27/17 0710: Anion Gap 8, Estimated GFR > 60, BUN/Creatinine Ratio 10.0, CBC w Diff NO MAN DIFF REQ, RBC 3.11 L, MCV 92.7, MCH 31.5 H, MCHC 34.0, RDW 14.4, MPV 7.6, Gran % 58.6, Lymphocytes % 28.3, Monocytes % 9.3, Eosinophils % 3.5, Basophils % 0.3, Absolute Granulocytes 3.2, Absolute Lymphocytes 1.6, Absolute Monocytes 0.5, Absolute Eosinophils 0.2, Absolute Basophils 0 08/26/171936: CBC w Diff NO MAN DIFF REQ, RBC 3.28 L, MCV 93.4, MCH 30.9, MCHC 33.0, RDW 14.4 , MPV 7.3 L, Gran % 58.3, Lymphocytes % 29.8, Monocytes % 9.4 H, Eosinophils % 2.2, Basophils % 0.3, Absolute Granulocytes 3.9, Absolute Lymphocytes 2.0, Absolute Monocytes 0.6, Absolute Eosinophils 0.2, Absolute Basophils 0 Assessment/Plan Assessment: 67-year-old gentleman with past medical history of hypertension, asthma, diverticulitis came to [facility] ER with painless bright bleeding per rectum. Patient was initially admitted in [facility] and had a rapid response for hypotension and hence transferred to critical care unit. Patient had colonoscopy which showed left resolving diverticular bleed. Patient is transferred back to [facility] for continuity of care. Assessment and plan 1. Diverticular bleed-resolving * Continue current management and monitor CBC every 12. Patient's today hemoglobin is 9.8. Patient had a large brown bowel movement today morning around 9. Patient was seen by Dr. Sorto during the same time was suggested to continue the current management. If in case of severe bleeding per rectum/ hemodynamically unstable advised to contact IR for embolization. * Continue to hold aspirin for another 48 hours per GI. Patient's home dose of Doxazosin and Hctz was held in view of hypotension. He shouldn't blood pressure today 142/78. We'll continue monitoring his vitals. * Patient had a fall during thIS hospital admission, x-ray left knee was takeN and found to have moderate effusion. Patient was seen by orthopedic who suggested aspiration tomorrow. Code-full code Diet-regular diet Problem List: 1. Diverticular hemorrhage Pain Ratin Pain Location: NONE Pain Goal: Remain pain free Pain Plan: TYLENOL Tomorrow's Labs & Rationales: CBC,BEP
[2017-08-27 08:19] LABS: ABSOLUTE BASOPHIL COUNT 0 /CUMM (0.0-0.2); ABSOLUTE EOSINOPHIL COUNT 0.2 /CUMM (0.0-0.7); ABSOLUTE GRANULOCYTE CT 3.2 /CUMM (1.4-6.5); ABSOLUTE LYMPH COUNT 1.6 /CUMM (1.2-3.4); ABSOLUTE MONOCYTE COUNT 0.5 /CUMM (0.10-0.60); BASOPHIL % 0.3 % (0.0-2.0); EOSINOPHIL % 3.5 % (0-5); GRANULOCYTE % 58.6 % (42.2-75.2); HEMATOCRIT 28.8 % (42-52); MEAN CORPUSCULAR HGB 31.5 PG (27.0-31.0); MEAN CORPUSCULAR VOLUME 92.7 FL (80.0-94.0); MEAN PLATELET VOLUME 7.6 FL (7.4-10.4); PLATELET COUNT 172 /CUMM (130-400); RBC DISTRIBUTION WIDTH 14.4 % (11.5-14.5); RED BLOOD CELL CT 3.11 /CUMM (4.70-6.10); WHITE BLOOD CELL COUNT 5.5 /CUMM (4.8-10.8)
[2017-08-27 09:00] VITALS: BP 142/78
--- NOTE | 2017-08-27 12:26 | PN- Att Addend ---
Attending Addendum Attending Brief Note Patient seen and examined, feels ok. Has another bloody BM this am. Also c/o pain in left knee. he fell and since then his knee is hurting. Vital Signs Date Time Temp Pulse Resp B/P B/P Pulse O2 O2 Flow FiO2 Mean Ox Delivery Rate 08/27 0900 80 18 142/78 99 / 0537 98.4 80 20 130/78 93 Room Air / 2202 98.5 80 18 122/70 93 Room Air 08/26 1600 99.0 70 20 128/76 96 on exam; aox3, nad. cv; s1, s2, rrr resp; clear abd; soft, nt, bs+ ext; no edema. ms: limited rom at left knee. Laboratory Tests 08/27 08/26 0710 1937 Chemistry Sodium (137 - 145 mmol/L) 143 Potassium (3.5 - 5.1 mmol/L) 3.6 Chloride (98 - 107 mmol/L) 106 Carbon Dioxide (22 - 30 mmol/L) 29 Anion Gap (5 - 16) 8 BUN (9 - 20 mg/dL) 8 L Creatinine (0.7 - 1.2 mg/dL) 0.8 Estimated GFR (>60 ml/min) > 60 BUN/Creatinine Ratio (7 - 25 %) 10.0 Hematology CBC w Diff NO MAN DIFF REQ NO MAN DIFF REQ WBC (4.8 - 10.8 /CUMM) 5.5 6.7 RBC (4.70 - 6.10 /CUMM) 3.11 L 3.28 L Hgb (14.0 - 18.0 G/DL) 9.8 L 10.1 L Hct (42 - 52 %) 28.8 L 30.6 L MCV (80.0 - 94.0 FL) 92.7 93.4 MCH (27.0 - 31.0 PG) 31.5 H 30.9 MCHC (33.0 - 37.0 G/DL) 34.0 33.0 RDW (11.5 - 14.5 %) 14.4 14.4 Plt Count (130 - 400 /CUMM) 172 187 MPV (7.4 - 10.4 FL) 7.6 7.3 L Gran % (42.2 - 75.2 %) 58.6 58.3 Lymphocytes % (20.5 - 51.1 %) 28.3 29.8 Monocytes % (1.7 - 9.3 %) 9.3 9.4 H Eosinophils % (0 - 5 %) 3.5 2.2 Basophils % (0.0 - 2.0 %) 0.3 0.3 Absolute Granulocytes (1.4 - 6.5 /CUMM) 3.2 3.9 Absolute Lymphocytes (1.2 - 3.4 /CUMM) 1.6 2.0 Absolute Monocytes (0.10 - 0.60 /CUMM) 0.5 0.6 Absolute Eosinophils (0.0 - 0.7 /CUMM) 0.2 0.2 Absolute Basophils (0.0 - 0.2 /CUMM) 0 0 A/P; 67-year-old male with past medical history significant for diverticulosis admitted initially to ICU with acute lower GI bleed secondary to acute diverticular bleed. After patient stabilized he was transferred to medicine floor. Patient was initially hemodynamically unstable with hypotension. Patient underwent colonoscopy which showed diverticular bleed which is resolving. Patient does have acute blood loss anemia secondary to GI bleed. This morning he had another bloody bowel movement. Patient also has left knee pain in the knee x-ray showed moderate pleural effusion. We'll monitor him one more day. We'll monitor H&H. We'll call orthopedic to come and evaluate the left knee pain and effusion. We will advance the diet to solid. DVt px; ALPS.
--- NOTE | 2017-08-27 13:05 | PN- Gastroenterology ---
Assessment/Plan GI Assessment/Recommendations: Assessment: Mr. Martinez is a 67 year old male admitted with a self limited diverticular bleed who is currently doing well. He underwent a colonoscopy yesterday which showed extensive left sided diverticulosis, but no active bleeding and the offending tic was not able to be identified, but based on the presence of blood in the left colon and lack of blood in the right the bleeding was likely somewhere in the sigmoid. He had some scant bleeding with a bm this morning, but based on his description and his stable hgb I suspect this is old blood. Recommendations: 1. Advance diet as tolerated 2. Avoid nsaids and would hold ASA for an additional 48 hrs 3. Notify GI for signs of hemodynamically significant bleeding and if this is to occur would then recommending contacting IR for embolization 4. Follow CBC q12hrs today and transfuse as needed to maintain hgb > 7 and if it is stable today would then change to qd dosing 5. He should follow up the pathology results of the polyp with me as an outpatient 6. If he remains without active bleeding consideration should be given to discharge him home later today or in the am. I will continue to follow this patient and make further recommendations based on his clinical course and results of repeat blood work. Problem List: 1. GI bleed Subjective Subjective: Pt feels well this morning. he notes that he had a bm this morning with some blood, but it is not as much as he had previously been having. He is without any abdominal pain or vomiting and he has been tolerating a liquid diet. Objective Vital Signs and I&Os Vital Signs Date Time Temp Pulse Resp B/P B/P Pulse O2 O2 Flow FiO2 Mean Ox Delivery Rate 08/27 0900 80 18 142/78 99 08/27 0537 98.4 80 20 130/78 93 Room Air 08/26 2202 98.5 80 18 122/70 93 Room Air 08/26 1600 99.0 70 20 128/76 96 Intake & Output 08/27 1600 08/27 0400 08/26 04008/25 0400 Intake Total 232 11 1831 1000 Output Total 0 250 Balance 227 21 0157 1000 Intake, Blood 148 Product Intake, IV 0 20 1375 1000 Intake, Oral 240 0 1000 Number 0 0 10 4 Bowel Movements Output, Urine 0 250 Patient 272 lb Weight Weight Reported by Patient Measurement Method Physical Exam General Appearance: well developed/nourished, no apparent distress, alert, comfortable Head: atraumatic Neck: normal inspection, supple Respiratory: normal breath sounds, chest non-tender, no respiratory distress Cardiovascular: regular rate/rhythm Abdomen: normal bowel sounds, soft, non-tender, no organomegaly Extremities: no edema Current Medications: Current Medications Sig/Abdullahi Start time Last Medication Dose Route Stop Time Status Admin Chlorhexidine 1 GM .STK-MED ONE 08/26 1405 DC Gluconate TOP 08/26 1406 Sodium Chloride 1,000 ML Q13H 08/26 0045 DC 08/26 IV 0111 Results Pertinent Lab Results: Laboratory Tests 08/27 08/26 0710 1937 Chemistry Sodium (137 - 145 mmol/L) 143 Potassium (3.5 - 5.1 mmol/L) 3.6 Chloride (98 - 107 mmol/L) 106 Carbon Dioxide (22 - 30 mmol/L) 29 Anion Gap (5 - 16) 8 BUN (9 - 20 mg/dL) 8 L Creatinine (0.7 - 1.2 mg/dL) 0.8 Estimated GFR (>60 ml/min) > 60 BUN/Creatinine Ratio (7 - 25 %) 10.0 Hematology CBC w Diff NO MAN DIFF REQ NO MAN DIFF REQ WBC (4.8 - 10.8 /CUMM) 5.5 6.7 RBC (4.70 - 6.10 /CUMM) 3.11 L 3.28 L Hgb (14.0 - 18.0 G/DL) 9.8 L 10.1 L Hct (42 - 52 %) 28.8 L 30.6 L MCV (80.0 - 94.0 FL) 92.7 93.4 MCH (27.0 - 31.0 PG) 31.5 H 30.9 MCHC (33.0 - 37.0 G/DL) 34.0 33.0 RDW (11.5 - 14.5 %) 14.4 14.4 Plt Count (130 - 400 /CUMM) 172 187 MPV (7.4 - 10.4 FL) 7.6 7.3 L Gran % (42.2 - 75.2 %) 58.6 58.3 Lymphocytes % (20.5 - 51.1 %) 28.3 29.8 Monocytes % (1.7 - 9.3 %) 9.3 9.4 H Eosinophils % (0 - 5 %) 3.5 2.2 Basophils % (0.0 - 2.0 %) 0.3 0.3 Absolute Granulocytes (1.4 - 6.5 /CUMM) 3.2 3.9 Absolute Lymphocytes (1.2 - 3.4 /CUMM) 1.6 2.0 Absolute Monocytes (0.10 - 0.60 /CUMM) 0.5 0.6 Absolute Eosinophils (0.0 - 0.7 /CUMM) 0.2 0.2 Absolute Basophils (0.0 - 0.2 /CUMM) 0 0 04/08/26 1015 0600 Chemistry Sodium (137 - 145 mmol/L) 146 H Cancelled Potassium (3.5 - 5.1 mmol/L) 3.6 Cancelled Chloride (98 - 107 mmol/L) 105 Cancelled Carbon Dioxide (22 - 30 mmol/L) 30 Cancelled Anion Gap (5 - 16) 11 Cancelled BUN (9 - 20 mg/dL) 13 Cancelled Creatinine (0.7 - 1.2 mg/dL) 0.9 Cancelled Estimated GFR (>60 ml/min) > 60 BUN/Creatinine Ratio Cancelled Glucose (65 - 99 mg/dL) 120 H Calcium (8.4 - 10.2 mg/dL) 8.6 Phosphorus (2.5 - 4.5 mg/dL) 2.7 Magnesium (1.6 - 2.3 mg/dL) 1.9 Total Bilirubin (0.2 - 1.3 mg/dL) 1.2 AST (17 - 59 U/L) 20 ALT (21 - 72 U/L) 30 Albumin (3.5 - 5.0 g/dL) 3.5 Hematology CBC w Diff NO MAN DIFF REQ Cancelled WBC (4.8 - 10.8 /CUMM) 6.8 Cancelled RBC (4.70 - 6.10 /CUMM) 3.80 L Cancelled Hgb (14.0 - 18.0 G/DL) 11.8 L Cancelled Hct (42 - 52 %) 35.3 L Cancelled MCV (80.0 - 94.0 FL) 93.0 Cancelled MCH (27.0 - 31.0 PG) 31.2 H Cancelled MCHC (33.0 - 37.0 G/DL) 33.5 Cancelled RDW (11.5 - 14.5 %) 14.8 H Cancelled Plt Count (130 - 400 /CUMM) 230 Cancelled MPV (7.4 - 10.4 FL) 7.5 Cancelled Gran % (42.2 - 75.2 %) 63.4 Lymphocytes % (20.5 - 51.1 %) 25.2 Monocytes % (1.7 - 9.3 %) 9.0 Eosinophils % (0 - 5 %) 2.1 Basophils % (0.0 - 2.0 %) 0.3 Absolute Granulocytes (1.4 - 6.5 /CUMM) 4.3 Absolute Lymphocytes (1.2 - 3.4 /CUMM) 1.7 Absolute Monocytes (0.10 - 0.60 /CUMM) 0.6 Absolute Eosinophils (0.0 - 0.7 /CUMM) 0.1 Absolute Basophils (0.0 - 0.2 /CUMM) 0 08/26 08/25 0150 2126 Chemistry Sodium (137 - 145 mmol/L) 144 Potassium (3.5 - 5.1 mmol/L) 3.7 Chloride (98 - 107 mmol/L) 103 Carbon Dioxide (22 - 30 mmol/L) 31 H Anion Gap (5 - 16) 10 BUN (9 - 20 mg/dL) 15 Creatinine (0.7 - 1.2 mg/dL) 1.0 Estimated GFR (>60 ml/min) > 60 BUN/Creatinine Ratio (7 - 25 %) 15.0 Glucose (65 - 99 mg/dL) 128 H Calcium (8.4 - 10.2 mg/dL) 9.1 Total Bilirubin (0.2 - 1.3 mg/dL) 0.5 Direct Bilirubin (< 0.4 mg/dL) 0.4 AST (17 - 59 U/L) 22 ALT (21 - 72 U/L) 32 Alkaline Phosphatase (< 127 U/L) 95 Troponin I (<0.11 ng/ml) < 0.01 Total Protein (6.3 - 8.2 g/dL) 6.6 Albumin (3.5 - 5.0 g/dL) 3.6 Amylase (30 - 110 U/L) 37 Lipase (23 - 300 U/L) 44 Hematology CBC w Diff NO MAN DIFF REQ NO MAN DIFF REQ WBC (4.8 - 10.8 /CUMM) 6.1 6.8 RBC (4.70 - 6.10 /CUMM) 3.33 L 4.15 L Hgb (14.0 - 18.0 G/DL) 10.4 L 12.9 L Hct (42 - 52 %) 31.1 L 38.9 L MCV (80.0 - 94.0 FL) 93.3 93.7 MCH (27.0 - 31.0 PG) 31.3 H 31.1 H MCHC (33.0 - 37.0 G/DL) 33.5 33.3 RDW (11.5 - 14.5 %) 13.7 13.7 Plt Count (130 - 400 /CUMM) 195 243 MPV (7.4 - 10.4 FL) 7.4 7.3 L Gran % (42.2 - 75.2 %) 63.2 58.6 Lymphocytes % (20.5 - 51.1 %) 25.7 28.0 Monocytes % (1.7 - 9.3 %) 9.3 10.8 H Eosinophils % (0 - 5 %) 1.7 2.4 Basophils % (0.0 - 2.0 %) 0.1 0.2 Absolute Granulocytes (1.4 - 6.5 /CUMM) 3.8 4.0 Absolute Lymphocytes (1.2 - 3.4 /CUMM) 1.6 1.9 Absolute Monocytes (0.10 - 0.60 /CUMM) 0.6 0.7 H Absolute Eosinophils (0.0 - 0.7 /CUMM) 0.1 0.2 Absolute Basophils (0.0 - 0.2 /CUMM) 0 0 04/01 0200 Hematology CBC w Diff Cancelled WBC Cancelled RBC Cancelled Hgb Cancelled Hct Cancelled MCV Cancelled MCH Cancelled MCHC Cancelled RDW Cancelled Plt Count Cancelled MPV Cancelled
--- NOTE | 2017-08-27 13:42 | PN- Orthopedic ---
Surgical Brief Attending Note Brief Attending Note: Patient seen this afternoon in consultation for left knee pain and swelling. Patient had a fall 2 days ago and landed on his left knee. He was on aspirin for anticoagulation. He complains of mild discomfort in the left knee. He isn' t able to ambulate without too much difficulty. On physical exam patient's awake alert and oriented. Examination of left knee reveals a 1+ effusion of the knee. He is able to perform a straight leg raise test. He's mildly tender to palpation about the patellofemoral joint. The left lower extremity is grossly neurovascularly intact. X-rays of the left knee were reviewed today. X-rays show mild degenerative changes and osteoarthritis of the left knee. There is no acute fracture or dislocation seen. Assessment 67 yo male with a left knee effusion probable hemarthrosis. Plan: Patient will have his left knee aspirated tomorrow prior to discharge.
[2017-08-27 14:40] VITALS: BP 138/80
[2017-08-27 16:19] LABS: PT 11.7 SEC (9.4-12.5)
[2017-08-27 21:17] VITALS: BP 144/82
[2017-08-28 06:22] VITALS: BP 138/78
--- NOTE | 2017-08-28 07:28 | PN- Housestaff ---
Subjective Follow-up For: Left diverticular bleed-resolved Left knee swelling-status post arthrocentesis. Complaints: no complaints Subjective: Patient seen and examined at bedside. No overnight events. No further episodes of bright bleeding per rectum. He denies chest pain, shortness of breath, pain in his left knee. He is eager to go home today. Review of Systems Constitutional: Reports: no symptoms. Cardiovascular: Reports: no symptoms. Respiratory: Reports: no symptoms. Gastrointestinal: Reports: no symptoms. Genitourinary: Reports: no symptoms. Musculoskeletal: Reports: no symptoms. Objective Last 24 Hrs of Vital Signs/I&O Vital Signs Date Time Temp Pulse Resp B/P B/P Pulse O2 O2 Flow FiO2 Mean Ox Delivery Rate 08/28 621 97.9 72 20 138/78 94 08/27 2117 98.8 70 20 144/82 94 08/27 1440 98.7 77 20 138/80 95 Room Air Intake & Output 08/28 1600 08/28 0800 08/28 0000 Intake Total 240 480 Output Total 600 Balance -360 480 Intake, Oral 240 480 Output, Urine 600 Physical Exam General Appearance: Alert, Oriented X3, Cooperative, No Acute Distress Cardiovascular: Regular Rate, Normal S1, Normal S2 Lungs: Clear to Auscultation Abdomen: Soft, No Tenderness, No Hepatospenomegaly Neurological: Normal Speech, Strength at 5/5 X4 Ext, Normal Tone, Sensation Intact Extremities: No Cyanosis, Normal Pulses, mild swelling- left knee. Current Medications: Current Medications Sig/Abdullahi Start time Last Medication Dose Route Stop Time Status Admin Patient Medication 1 ED ONE ONE 08/28 1045 [facility] Teaching ED 08/28 1046 Patient Medication 1 ED ONE ONE 08/27 1700 [facility] ED 08/27 1701 Last 24 Hrs of Lab/Miguelito Results Last 24 Hrs of Labs/Mics: Laboratory Tests 08/28/17 0940: Fluid WBC Pending, Fld Total RBCs Counted Pending 08/28/17 0940: Fluid Glucose ND, Fluid Total Protein ND 08/28/17 0640: CBC w Diff NO MAN DIFF REQ, RBC 3.20 L, MCV 92.3, MCH 32.0 H, MCHC 34.6, RDW 13.9, MPV 7.4, Gran % 59.8, Lymphocytes % 28.0, Monocytes % 8.4, Eosinophils % 3.4, Basophils % 0.4, Absolute Granulocytes 3.6, Absolute Lymphocytes 1.7, Absolute Monocytes 0.5, Absolute Eosinophils 0.2, Absolute Basophils 0 08/27/17 1520: PT 11.7, INR 1.07 Microbiology 08/28 0940 BODY FLUID: Body Fluid Culture - RECD 08/29 939 BODY FLUID: Gram Stain - RECD Assessment/Plan Assessment: 67-year-old gentleman with past medical history of hypertension, asthma, diverticulitis came to [place] ER with painless bright bleeding per rectum. Patient was initially admitted in [facility] and had a rapid response for hypotension and hence transferred to critical care unit. Patient had colonoscopy which showed left resolving diverticular bleed. Patient is transferred back to [facility] for continuity of care. Assessment and plan 1. Diverticular bleed-resolving * No more episodes of bleeding per rectum. Patient hemoglobin 10.2. * Continue to hold aspirin for another 48 hours per GI. Patient's home dose of Doxazosin and Hctz was held in view of hypotension. Patient advised to resume his home medication including aspirin from 08/30/2017. * Patient had a fall during this hospital admission, x-ray left knee was takeN and found to have moderate effusion. Patient was seen by Dr. Bunch today and arthrocentesis was done and sent for culture and cell count. Update-arthrocentesis showed lot of RBCs, most likely hemarthrosis secondary due to fall. Code-full code Diet-regular diet Problem List: 1. Diverticular hemorrhage 2. Effusion, left knee Pain Ratin Pain Location: none Pain Goal: Remain pain free Pain Plan: tylenol Tomorrow's Labs & Rationales: none
[2017-08-28 08:07] LABS: ABSOLUTE BASOPHIL COUNT 0 /CUMM (0.0-0.2); ABSOLUTE EOSINOPHIL COUNT 0.2 /CUMM (0.0-0.7); ABSOLUTE GRANULOCYTE CT 3.6 /CUMM (1.4-6.5); ABSOLUTE LYMPH COUNT 1.7 /CUMM (1.2-3.4); ABSOLUTE MONOCYTE COUNT 0.5 /CUMM (0.10-0.60); BASOPHIL % 0.4 % (0.0-2.0); EOSINOPHIL % 3.4 % (0-5); GRANULOCYTE % 59.8 % (42.2-75.2); HEMATOCRIT 29.6 % (42-52); MEAN CORPUSCULAR HGB CONC 34.6 G/DL (33.0-37.0); MEAN CORPUSCULAR VOLUME 92.3 FL (80.0-94.0); MEAN PLATELET VOLUME 7.4 FL (7.4-10.4); PLATELET COUNT 198 /CUMM (130-400); RBC DISTRIBUTION WIDTH 13.9 % (11.5-14.5)
--- NOTE | 2017-08-28 08:26 | Patient Discharge Instructions ---
Discharge Instructions General Discharge Information You were seen/treated for: Left diverticular bleed Left knee effusion-arthrocentesis done Watch for these problems: In case of bleeding per rectum, nausea, vomiting, dizziness, chest pain, shortness of breath, knee pain please go to the nearest emergency room Special Instructions: Please follow-up with your primary care provider within 1-2 weeks of discharge. Please start taking here home medication including aspirin, hydrochlorothiazide, Doxazosin, from 08/30/2017. 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 Sorto within 1-2 weeks of discharge Please follow-up with the orthopedic doctor within 1-2 weeks of discharge if he had any knee pain. Please follow-up with your arthrocentesis report with your primary care physician/orthopedic doctor. Diet Continue normal diet: No Recommended Diet: Regular Activity Full Activity/No Limits: No Activity Self Limited: Yes Acute Coronary Syndrome Inclusion Criteria At DC or during hospital stay patient has or had the following: ACS DIAGNOSIS No Discharge Core Measures Meds if any: Prescribed or Continued at Discharge Meds if any: NOT Prescribed or Continued at Discharge Congestive Heart Failure Inclusion Criteria At DC or during hospital stay patient has or had the following: CHF DIAGNOSIS No Discharge Core Measures Meds if any: Prescribed or Continued at Discharge Meds if any: NOT Prescribed or Continued at Discharge Cerebrovascular accident Inclusion Criteria At DC or during hospital stay patient has or had the following: CVA/TIA Diagnosis No Discharge Core Measures Meds if any: Prescribed or Continued at Discharge Meds if any: NOT Prescribed or Continued at Discharge Venous thromboembolism Inclusion Criteria VTE Diagnosis No VTE Type NONE VTE Confirmed by (Test) NONE Discharge Core Measures - Per Current guidelines, there needs to be overlap - treatment for the first 5 days of Warfarin therapy. - If discharged on Warfarin prior to 5 days of - overlap therapy, the patient will need to be - assessed for post discharge needs including - *Post discharge parental anticoagulation - *Warfarin and/or parental anticoagulation education - *Follow up date to check INR post discharge At least 5 days overlap therapy as Inpatient No Meds if any: Prescribed or Continued at Discharge Note: Overlap Therapy is Warfarin and Anticoagulant Meds if any: NOT Prescribed or Continued at Discharge
--- NOTE | 2017-08-28 08:31 | Discharge Summary ---
Visit Information Visit Dates Admission Date: 08/25/17 Discharge Date: 08/28/17 Hospital Course Course Attending Physician: Stephanie Rivas MD Primary Care Physician: Michael REBOLLAR,Noe Serrano Hospital Course: Patient is a 67-year-old male with a PMH significant for diverticulitis 15 years ago, HTN, asthma, who presented to the [facility] ED complaining of painless bright red blood per rectum. Patient reported waking up this morning in his usual state of health and traveling to visit his family for Easter. He then began having painless bright red blood per rectum which he described as bright red coating the entire toilet bowl with no stool. He then began having associated mild abdominal pain in the left lower quadrant. He was passing blood per rectum approximately once per hour and decided to go to the local ED, [facility]. There he had lab work done and a CT scan showing diverticulosis. He was told that he could be admitted or return home and follow up with his doctor in the morning. He decided to go home and continued having prior blood per rectum associated dizziness and decided to come to [facility]. He denied any chest pain, palpitations, loss of consciousness. Hospital course: Patient was admitted to general medical floor for management of diverticular bleeding. Patient had a fall on the night of admission,and rapid response was called and he also had significant hypotension and hence was transferred to critical care unit for further monitoring. Patient was seen by manager cardiac cath who did a colonoscopy which showed left resolving diverticular bleed. One unit of blood was transfused. Patient's hemoglobin and vitals stable and hence transferred back to general medical floor. Patient was hemodynamically stable throughout the hospital course. Due to his fall during this admission he had left knee swelling and x-ray was taken which showed moderate effusion. Orthopedic doctor was consulted who did arthrocentesis of his left knee. Arthrocentesis fluid showed a lot of RBC which is same as hemarthrosis. Patient was stable on the day of discharge. He was advised to follow-up with his primary care physician and manager cardiac cath within 1-2 weeks of discharge. Please follow up with manager cardiac cath for colonoscopy biopsy pathology. Complications: Fall followed by left knee hemarthrosis Allergies: Coded Allergies: No Known Allergies (08/26/17) Significant Procedures: Arthrocentesis of left knee Pertinent Lab Results: Left knee x-ray Moderate-sized knee joint effusion. No acute fractures. Mild medial compartment narrowing. Colonoscopy 1. Findings consistent with a resolving left-sided diverticular bleed. 2. Diminutive transverse colon polyp status post removal via cold biopsy forceps. 3. Small internal hemorrhoids. 4. No active bleeding appreciated. Disposition Summary Disposition Principal Diagnosis: Left diverticular bleed Additional Diagnosis: Left knee hemarthrosis Discharge Disposition: home or self care Discharge Instructions General Discharge Information Code Status: Full Code Patient's Diet: Regular diet Patient's Activity: As tolerated Follow-Up Instructions/Appts: Please follow-up with your primary care provider and manager cardiac cath within 1 -2 weeks of discharge. Medications at Discharge Discharge Medications: Continue taking these medications: Hydrochlorothiazide (Hydrochlorothiazide) 25 MG TABLET 1 Tablet ORAL DAILY Qty = 90 Comments: NOT GIVEN IN HOSPITAL Doxazosin Mesylate (Doxazosin Mesylate) 2 MG TABLET 1 Tablet ORAL DAILY Qty = 135 Comments: NOT GIVEN IN HOSPITAL Aspirin (Ecotrin*) 81 MG TABLET.DR 1 Tablet ORAL DAILY Comments: NOT GIVEN IN HOSPITAL Copies To: Campbell Sorto MD MD Review Statement Documenting Attending: Noe Rodriguez MD
[2017-08-28] MEDS ORDERED: ASPIRIN EC81 M1 PO (09:48)
--- NOTE | 2017-08-28 10:52 | Event Note ---
Event Note Event Note: Under strict aseptic precaution arthrocentesis of his left knee was done with the guidance of Dr. Bunch by the bedside. Blood-tinged clear fluid off 25 mL was stopped. The same sent for culture/cell counts/glucose/protein. Patient tolerated the procedure well no obvious bleeding. Patient able to flex his left knee.
--- NOTE | 2017-08-28 12:25 | PN- Att Addend ---
Attending Addendum Attending Brief Note Patient seen and examined, feels overall better. No further bloody bowel movements. H&H remain stable. Vital signs stable. Status post arthrocentesis of the left knee today by Dr. Bunch. Fluid studies do not show any crystals and white blood cell count is only in 400 so therefore this was likely related to trauma. Patient is otherwise stable for discharge home today. Will follow up with Macario Lambert Ricco as outpatient.
== END 2017-08-28 13:23 | DRG 378 ==
LOC: ERH 20:48 → CRI 22:21 → ERHI 22:21 → ENRESERV 08-26 00:11 → CRI 08-26 00:47 → 2NB 08-26 00:48 → CRI 08-26 03:13 → ENTRNSPT 08-26 20:31 → EDTRNSPTSTS 08-26 21:10 → EDTRNSPT 08-26 21:10 → 2NB 08-26 21:17 → CMPTRNSPT 08-26 21:18 → 2NB 08-27 07:32 → ENPENDDIS 08-28 12:27 → ENTRNSPT 08-28 13:09 → EDTRNSPT 08-28 13:20 → EDTRNSPTSTS 08-28 13:20 → 2NB 08-28 13:23 → CMPTRNSPT 08-28 13:29
PROVIDERS: Internal Medicine; Internal Medicine Interventional Cardiology; Pediatrics; Student in an Organized Health Care Education/Training Program
PROC: 0DDL8ZX Extraction of Transverse Colon, Via Natural or Artificial Opening Endoscopic, Diagnostic (ICD-10-PCS; principal; 2017-08-26)
PROC: 30233N1 Transfusion of Nonautologous Red Blood Cells into Peripheral Vein, Percutaneous Approach (ICD-10-PCS; 2017-08-26)
PROC: 0S9C3ZX Drainage of Right Knee Joint, Percutaneous Approach, Diagnostic (ICD-10-PCS; 2017-08-28)
DX: K57.31 Diverticulosis of large intestine without perforation or abscess with bleeding (principal); D62 Acute posthemorrhagic anemia; M25.062 Hemarthrosis, left knee; K92.1 Melena; K64.9 Unspecified hemorrhoids; W18.30XA Fall on same level, unspecified, initial encounter; Y92.239 Unspecified place in hospital as the place of occurrence of the external cause; I10 Essential (primary) hypertension; J45.909 Unspecified asthma, uncomplicated; K64.8 Other hemorrhoids
CPT/HCPCS: 2NBSP; 87075; ERO; 36415; 36592; 73562-LT; 82436; 86920; 88305; 93005; 93010; 94799; P9016